=== PATIENT | male | born 1995 ===

== ENCOUNTER 2017-03-21 18:25 | Emergency (ER) | payer BC ==
[2017-03-21 18:26] VITALS: BMI 25.1
[2017-03-21 18:40] VITALS: BP 151/87; PULSE 66; RESP 18; TEMP 97.9; O2SAT 100
--- NOTE | 2017-03-21 19:44 | C.PDOC ---
History Of Present Illness 21 yr old male presents to the ER with complaints of right upper back pain for the past few days, after lifting something heavy at work. Patient states he was seen at [facility] yesterday with a normal xray result and was diagnosed with a muscle sprain. However, patient states he was not given any pain medication. Patient is here requesting pain medication since the pain persist and a work note. Patient denies chest pain, SOB, dyspnea, diaphoresis, palpitation, nausea , vomiting, abdominal pain, dysuria, hematuria, incontinence, weakness or numbness to B/L UEs and LEs. AMbulate to Ed for evaluation, not in any apparent distress. Time Seen by Provider: 03/21/17 19:16 Chief Complaint (Nursing): Back Pain History Per: Patient History/Exam Limitations: no limitations Onset/Duration Of Symptoms: Days (Few days) Current Symptoms Are (Timing): Still Present Past Medical History Reviewed: Historical Data, Nursing Documentation, Vital Signs Vital Signs: Last Vital Signs Temp 97.9 F 03/21/17 18:38 Pulse 66 03/21/17 18:38 Resp 18 03/21/17 18:38 BP 151/87 H 03/21/17 18:38 Pulse Ox 100 03/21/17 20:02 - Medical History PMH: Asthma Family History: States: No Known Family Hx - Social History Hx Alcohol Use: No Hx Substance Use: No - Immunization History Hx Tetanus Toxoid Vaccination: No Hx Influenza Vaccination: No Hx Pneumococcal Vaccination: No Review Of Systems Except As Marked, All Systems Reviewed And Found Negative. Cardiovascular: Negative for: Chest Pain Respiratory: Negative for: Shortness of Breath Gastrointestinal: Negative for: Nausea, Vomiting, Abdominal Pain Genitourinary: Negative for: Dysuria, Incontinence, Hematuria Musculoskeletal: Positive for: Back Pain (Right upper back pain ) Neurological: Negative for: Weakness, Numbness Physical Exam - Physical Exam Appears: Well, Non-toxic, No Acute Distress Skin: Warm, Dry, No Rash Eye(s): bilateral: PERRL Oral Mucosa: Moist Throat: Normal, No Erythema, No Exudate, No Drooling Neck: Trachea Midline, No Midline Cervical Tenderness, No Paracervical Tenderness, No Step Off Deformity, Supple Chest: Symmetrical, No Deformity, No Ecchymosis, No Subcutaneous Emphysema, Other (Reproducible right posterior rib cage tenderness overlying 6-8 intercostal spaces. ) Cardiovascular: Rhythm Regular, No Murmur Respiratory: No Decreased Breath Sounds, No Accessory Muscle Use, No Rales, No Rhonchi, No Stridor, No Wheezing Gastrointestinal/Abdominal: Soft, No Tenderness Back: Normal Inspection, No Vertebral Tenderness Extremity: No Tenderness, No Pedal Edema, No Swelling Neurological/Psych: Oriented x3, Normal Speech, Normal Motor ED Course And Treatment O2 Sat by Pulse Oximetry: 100 Pulse Ox Interpretation: Normal - Other Rad CXR Interpretation: offered to patient-refused ta present time Progress Note: On re-evaluation, pt is afebrile, hemodynamicaly stable. Non- toxic. Ambulatoy rin ED with stable gait. PulsEOx 100% RA. ENT: no acute findings. Lungs: CTA B/L, BS equal B/L. CVS: (+)S1S2, reg. Abd: benign. CXR- refused. Pt has clinical findings c/w Right sided posterior ribcage pain, thoracic strain. Pt advised. ref. to [facility] in 1-2 days for re-eval. return to ED at any time if any worsening or new changes. Medical Decision Making Medical Decision Making: PLAN: * Valium PO * Toradol IM Disposition Counseled Patient/Family Regarding: Diagnosis, Need For Followup - Disposition Referrals: [facility] [Outside] Disposition: HOME/ ROUTINE Disposition Time: 19:42 Condition: STABLE Additional Instructions: Light duty to lower back Avoid heavy lifting for 1 week Take Ibuprofen as need fora pin Follow up with PMD in 2-3 days for re-evaluation. Return to Ed if any worsening or new changes. 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 - Scribe Statement The provider has reviewed the documentation as recorded by the Scribe Raquel Rodriguez All medical record entries made by the Scribe were at my direction and personally dictated by me. I have reviewed the chart and agree that the record accurately reflects my personal performance of the history, physical exam, medical decision making, and the department course for this patient. I have also personally directed, reviewed, and agree with the discharge instructions and disposition.
== END 2017-03-21 20:04 | disposition home or self-care (01) ==
LOC: C.ER 18:25
DX: S29.012D Strain of muscle and tendon of back wall of thorax, subsequent encounter (principal); X50.0XXD Overexertion from strenuous movement or load, subsequent encounter; M54.6 Pain in thoracic spine

== ENCOUNTER 2017-04-03 14:02 | Emergency (ER) | payer BC ==
[2017-04-03 14:02] VITALS: BMI 25.1
[2017-04-03 14:19] VITALS: O2SAT 98
[2017-04-03] MEDS ORDERED: Lidocaine 5% Patch TD STA (14:40)
[2017-04-03] MEDS ORDERED: Lidocaine 5% Patch TD ONE (14:50)
--- NOTE | 2017-04-03 15:38 | C.PDOC ---
History Of Present Illness 21 y/o male presents to the ED with complains of intermittent lower back pain for the past few days. Pt denies injury but bends and lifts items frequently at work. Today pain recurred preventing patient from working. Pt denies weakness, numbness, incontinence or any other complaints. Time Seen by Provider: 04/03/17 14:21 Chief Complaint (Nursing): Back Pain History Per: Patient History/Exam Limitations: no limitations Onset/Duration Of Symptoms: Days, Intermittent Episodes Current Symptoms Are (Timing): Worse Quality Of Discomfort: "Pain" Severity: Moderate Previous Symptoms: Back Pain Associated Symptoms: None Recent travel outside of the [place]: No Past Medical History Reviewed: Historical Data, Nursing Documentation, Vital Signs Vital Signs: Last Vital Signs Temp 97.9 F 04/03/17 16:08 Pulse 71 04/03/17 16:08 Resp 20 04/03/17 16:08 BP 133/80 04/03/17 16:08 Pulse Ox 98 04/03/17 16:08 - Medical History PMH: Asthma Family History: States: Unknown Family Hx - Social History Hx Alcohol Use: No Hx Substance Use: No - Immunization History Hx Tetanus Toxoid Vaccination: No Hx Influenza Vaccination: No Hx Pneumococcal Vaccination: No Review Of Systems Except As Marked, All Systems Reviewed And Found Negative. Constitutional: Negative for: Fever, Chills Genitourinary: Negative for: Incontinence Musculoskeletal: Positive for: Back Pain Neurological: Negative for: Weakness, Numbness Physical Exam - Physical Exam Appears: Non-toxic, No Acute Distress Skin: Warm, Dry, No Rash Head: Atraumatic, Normacephalic Back: No Vertebral Tenderness, Muscle Spasm (left lumbar), Paraspinal Tenderness (left lumbar) Extremity: Normal ROM Extremity: Bilateral: Atraumatic Neurological/Psych: Oriented x3, Normal Speech, Normal Motor, Normal Sensation ED Course And Treatment O2 Sat by Pulse Oximetry: 98 (room air) Pulse Ox Interpretation: Normal Progress Note: Plan: valium, toradol, lidocaine 5% patch. On reassessment, patient is resting comfortably, with improvement of back pain. Patient remains afebrile, with no bony tenderness, extremity numbness or weakness, or abdominal pain. Patient is ambulatory in the emergency department with no signs of discomfort. Patient was advised to follow up with physician/clinic in 1-2 days. Disposition - Disposition Referrals: [facility] [Outside] [facility] at [facility] [Outside] Disposition: HOME/ ROUTINE Disposition Time: 15:56 Condition: IMPROVED Additional Instructions: Follow up with PMD within 1-2 days. Return to ED if feel worse. Prescriptions: Lidocaine 5% [Lidoderm] 1 patch TP DAILY #30 patch Ibuprofen [Motrin Tab] 600 mg PO Q8 #30 tab Methocarbamol [Robaxin] 500 mg PO TID #21 tab traMADol [Ultram] 50 mg PO Q6 #30 tab Instructions: Back Pain (ED) Forms: Work Excuse Print Language: [place] - Clinical Impression Clinical Impression: Back pain - PA / DATA ENTRY COORDINATOR / Resident Statement MD/DO has reviewed & agrees with the documentation as recorded. - Scribe Statement The provider has reviewed the documentation as recorded by the Oswaldo Mcdermott All medical record entries made by the Oswaldo were at my direction and personally dictated by me. I have reviewed the chart and agree that the record accurately reflects my personal performance of the history, physical exam, medical decision making, and the department course for this patient. I have also personally directed, reviewed, and agree with the discharge instructions and disposition.
[2017-04-03 16:10] VITALS: BP 133/80; PULSE 71; RESP 20; TEMP 97.9
== END 2017-04-03 16:09 | disposition home or self-care (01) ==
LOC: C.ER 14:02
DX: M54.5 Low back pain (principal)
CPT/HCPCS: 96372; 99283; J1885

== ENCOUNTER 2017-06-14 11:48 | Emergency (ER) | payer OTHER, BC ==
[2017-06-14 11:48] VITALS: BMI 25.1
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
--- NOTE | 2017-06-14 12:42 | RAD ---
PROCEDURE: Cervical Spine Radiographs. HISTORY: Pain. COMPARISON: None. FINDINGS: BONES: Alignment maintained. No fracture. Dens Intact. DISC SPACES: Normal. SOFT TISSUES: Normal. No prevertebral soft tissue swelling. OTHER FINDINGS: None. IMPRESSION: Normal cervical spine radiographs
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
[2017-06-14 12:56] VITALS: BP 114/75; PULSE 65; RESP 18; TEMP 96.9
[2017-06-14 13:05] VITALS: O2SAT 98
== END 2017-06-14 13:01 | disposition home or self-care (01) ==
LOC: C.ER 11:48
DX: S39.012A Strain of muscle, fascia and tendon of lower back, initial encounter (principal); S16.1XXA Strain of muscle, fascia and tendon at neck level, initial encounter; V89.2XXA Person injured in unspecified motor-vehicle accident, traffic, initial encounter
CPT/HCPCS: 72040; 72100; 96372; 99283; J1885

== ENCOUNTER 2018-08-22 18:00 | Emergency (ER) | payer OTHER ==
[2018-08-22 18:00] VITALS: BMI 25.1
--- NOTE | 2018-08-22 20:03 | C.PDOC ---
History Of Present Illness 23 year old male patient presents to the ER with c/o tight chest pain for x2 days. Patient reports he took an Advil with no relief. Chest pain worse when deep breathing. Patient denies cough, smoking and recent travels. Time Seen by Provider: 08/22/18 19:42 Chief Complaint (Nursing): Chest Pain History Per: Patient History/Exam Limitations: no limitations Onset/Duration Of Symptoms: Days (x2) Current Symptoms Are (Timing): Still Present Quality: Tightness Past Medical History Reviewed: Historical Data, Nursing Documentation, Vital Signs Vital Signs: Last Vital Signs Temp 98.6 F 08/22/18 18:13 Pulse 85 08/22/18 18:13 Resp 18 08/22/18 18:13 BP 124/79 08/22/18 18:13 Pulse Ox 97 08/22/18 18:13 - Medical History PMH: Asthma Family History: States: No Known Family Hx - Social History Hx Alcohol Use: No Hx Substance Use: No - Immunization History Hx Tetanus Toxoid Vaccination: Yes Hx Influenza Vaccination: No Hx Pneumococcal Vaccination: No Review Of Systems Except As Marked, All Systems Reviewed And Found Negative. Cardiovascular: Positive for: Chest Pain (physically reproducible chest wall pain ) Respiratory: Positive for: Other (worse with breathing) Physical Exam - Physical Exam Appears: Non-toxic, No Acute Distress Skin: Normal Color, Warm, Dry Head: Atraumatic, Normacephalic Eye(s): bilateral: Normal Inspection, PERRL, EOMI Nose: Normal Oral Mucosa: Moist Chest: Symmetrical, Tenderness (reproducible chest wall tendnerness) Cardiovascular: Rhythm Regular, No Murmur Respiratory: Normal Breath Sounds, No Rales, No Rhonchi, No Wheezing Gastrointestinal/Abdominal: Soft, No Tenderness Extremity: Normal ROM (x4) Extremity: Bilateral: Atraumatic, Normal Color And Temperature Neurological/Psych: Oriented x3, Normal Speech ED Course And Treatment ECG: Interpreted By Me, Viewed By Me ECG Rhythm: Sinus Rhythm ECG Interpretation: Normal, No Acute Changes Interpretation Of ECG: normal intervals, normal axis, no ST or T-wave abnormalities Rate From EC O2 Sat by Pulse Oximetry: 97 (RA) Pulse Ox Interpretation: Normal Medical Decision Making Medical Decision Making: Impression: chest pain Plans: -- EKG -- CXR -- Motrin -- Tylenol Reassess: 2041 - cxr preliminary read as nad upon reevaluating patient he now complains of cough and asthma. Cough is non-productive Lungs are clear Will administer breathing treatment and steroids. 2114 - patient states improvement With breathing treatments. Will discharge home to follow up with medical clinic within 2 days patient was only given one prescription for naprosyn and not 2. Attempted to delete from system but unable to do so. Disposition - Disposition Referrals: [facility] [Outside] Disposition: HOME/ ROUTINE Disposition Time: 20:33 Condition: STABLE Additional Instructions: follow up with your doctor or medical clinic within 2 days call to make an appointment take medication as prescribed return to ER if symptoms worsens or progress Prescriptions: RX: Albuterol HFA [Ventolin HFA 90 mcg/actuation (8 g)] 2 puff IH [id number] #1 puff Benzonatate [Tessalon Perles] 100 mg PO BID PRN #14 tab PRN Reason: Cough And Congestion Naproxen [Naprosyn] 500 mg PO BID PRN #16 tab PRN Reason: Pain, Moderate (4-7) Naproxen [Naprosyn] 500 mg PO BID PRN #16 tab PRN Reason: Pain, Moderate (4-7) RX: predniSONE [predniSONE Tab] 50 mg PO DAILY #4 tab Instructions: Asthma in Adults, Costochondritis (DC) Forms: Gen Discharge Inst American, [employer] (American), Work Excuse Print Language: KUWAITI - Clinical Impression Clinical Impression: Chest wall pain - Scribe Statement The provider has reviewed the documentation as recorded by the Oswaldo Ching Do Provider Attestation: All medical record entries made by the Oswaldo were at my direction and personally dictated by me. I have reviewed the chart and agree that the record accurately reflects my personal performance of the history, physical exam, medical decision making, and the department course for this patient. I have also personally directed, reviewed, and agree with the discharge instructions and disposition.
[2018-08-22] MEDS ORDERED: Albuterol-Ipratrop 3 mg / 0.5 (3 ml) UD INH STA (20:42)
[2018-08-22] MEDS ORDERED: Albuterol-Ipratrop 3 mg / 0.5 (3 ml) UD ONE (20:50)
[2018-08-22 21:37] VITALS: BP 134/88; PULSE 78; RESP 16; TEMP 98.5
[2018-08-22 23:19] VITALS: O2SAT 97
--- NOTE | 2018-08-23 08:28 | RAD ---
HISTORY: cough COMPARISON: No prior. TECHNIQUE: Chest PA and lateral FINDINGS: Examination limited by habitus. LUNGS: No focal consolidation. Two tiny right-sided probable calcified granulomas. Please note that chest x-ray has limited sensitivity for the detection of pulmonary masses. PLEURA: No significant pleural effusion identified. No definite pneumothorax . CARDIOVASCULAR: The cardiomediastinal silhouette appears within normal limits of size. OSSEOUS STRUCTURES: No acute osseous abnormality identified. VISUALIZED UPPER ABDOMEN: Mild elevation of the right hemidiaphragm. OTHER FINDINGS: None. IMPRESSION: No acute findings. Incidental findings as above.
--- NOTE | 2018-08-25 20:43 | CARD ---
APPROVED REPORT Date of service: 08/22/2018 EKG Measurement Heart [id number] <Conclusion> Normal sinus rhythm Abnormal QRS-T angle, consider primary T wave abnormality Abnormal ECG
== END 2018-08-22 21:35 | disposition home or self-care (01) ==
LOC: C.ER 18:00
DX: R07.89 Other chest pain (principal)